=== PATIENT | male | born 1995 | race African-American/Black ===

== ENCOUNTER 2024-11-05 02:21 | Emergency (ER) | payer OTHER ==
[~2024-11-05] VITALS: Ht 172.7 cm; Wt 64.3 kg
[2024-11-05 02:26] VITALS: O2SAT 100
[2024-11-05] MEDS ORDERED: IBUP-1455 MT (02:32)
[2024-11-05] MEDS ORDERED: AMOX-494 MT (02:32)
[2024-11-05] MEDS: KETOROLAC 30MG/ML VIAL IM ONE (02:34)
[2024-11-05 02:37] VITALS: BP 138/70; PULSE 58; RESP 18; TEMP 37.3; O2SAT 98
== END 2024-11-05 02:39 | disposition home or self-care (01) ==
LOC: ER 02:21
DX: K08.89 Other specified disorders of teeth and supporting structures (principal); Z79.899 Other long term (current) drug therapy; Z98.890 Other specified postprocedural states
CPT/HCPCS: 99283; 96372; J1885